=== PATIENT | female | born 1965 | race Native Hawaiian/Other Pacific Islander ===

== ENCOUNTER 2017-04-13 19:15 | Emergency (ER) | payer BC ==
[~2017-04-13] VITALS: Ht 170.2 cm; Wt 68.0 kg
[2017-04-13 19:55] LABS: PLATELET COUNT 438 K/uL (152-353)
[2017-04-13 20:00] LABS: POTASSIUM 4.3 mmol/L (3.6-5.2); SODIUM 137 mmol/L (136-145)
[2017-04-13 21:27] VITALS: BP 104/65; TEMP 97.9
== END 2017-04-13 21:37 | disposition home or self-care (01) ==
LOC: ED 19:15
PROVIDERS: Specialist
DX: I47.1 Supraventricular tachycardia (principal); R07.89 Other chest pain
CPT/HCPCS: 36415; 80048; 82550; 84484; 85027; 93005; 96374; 96375; 96376; 99284; J0150; J0153; J2405

== ENCOUNTER 2022-09-17 09:39 | Emergency (ER) | payer BC ==
[~2022-09-17] VITALS: Ht 170.2 cm; Wt 68.0 kg
[2022-09-17 09:44] VITALS: BP 124/73; TEMP 98
[2022-09-17 10:42] LABS: POTASSIUM 3.8 mmol/L (3.6-5.2)
== END 2022-09-17 11:05 | disposition home or self-care (01) ==
LOC: ED 09:39
PROVIDERS: Family Medicine
DX: S22.31XA Fracture of one rib, right side, initial encounter for closed fracture (principal); S20.211A Contusion of right front wall of thorax, initial encounter; W01.190A Fall on same level from slipping, tripping and stumbling with subsequent striking against furniture, initial encounter; Y92.89 Other specified places as the place of occurrence of the external cause
CPT/HCPCS: 80053; 80307; 81000; 82550; 84484; 87077; 87086; 87088; 87186; 93005; 96360; 96372; 99284; J1885

== ENCOUNTER 2023-01-03 10:29 | Outpatient (CLI) | payer BC | END 2023-01-03 19:23 | disposition home or self-care (01) | LOC: MAMMO 10:29 | PROVIDERS: ATTEND Obstetrics & Gynecology | DX: Z12.31 Encounter for screening mammogram for malignant neoplasm of breast (principal) ==